=== PATIENT | female | born 2000 | race African-American/Black ===

== ENCOUNTER 2025-06-04 20:54 | Emergency (ER) | payer MEDICAID ==
[~2025-06-04] VITALS: Ht 152.4 cm; Wt 51.4 kg
[2025-06-05 00:58] LABS: PLATELET COUNT (AUTO) 343 K/uL (150-450); RED BLOOD CELL COUNT(AUTO) 5.00 MIL/uL (4.00-5.20); RED CELL DISTRIBUTION WIDTH 17.4 % (11.5-14.5); WHITE BLOOD COUNT (AUTO) 5.5 K/uL (4.5-11.0)
[2025-06-05 00:59] VITALS: BP 110/75; PULSE 65; RESP 24; TEMP 98.605328; O2SAT 98
[2025-06-05 01:05] LABS: RBC MORPHOLOGY COMMENT ABNORMAL RBC MORPH
[2025-06-05 01:08] LABS: CALCIUM, TOTAL 9.6 mg/dL (8.8-10.5); CREATININE 0.82 mg/dL (0.60-1.30); GLOMERULAR FILTR. RATE CALC > 60 mL/min (>60); GLUCOSE,RANDOM 87 mg/dL (70-110); SODIUM SERUM 139 mmol/L (136-145); UREA NITROGEN, BLOOD 14 mg/dL (7-18)
[2025-06-05 01:26] LABS: APPEARANCE,URINE HAZY (CLEAR); GLUCOSE, URINE (UA) NEGATIVE (NEGATIVE); HCG,QUAL URINE NEGATIVE (NEGATIVE); LEUKOCYTE ESTERASE ,URINE MODERATE (NEGATIVE); NITRATE,URINE NEGATIVE (NEGATIVE); OCCULT BLOOD,URINE NEGATIVE (NEGATIVE); PH,URINE DRUG SCREEN 6.0 (5.0-8.0); SPECIFIC GRAVITIY, URINE 1.022 (1.003-1.030)
[2025-06-05] MEDS: SODIUM CHLORIDE 0.9% 1,000 ML IV ONE (01:30)
[2025-06-05 01:31] LABS: ALCOHOL, URINE DRUG SCREEN NEGATIVE (NEGATIVE); AMPHET/METH SCREEN,URINE POSITIVE (NEGATIVE); BARBITURATE SCREEN, URINE NEGATIVE (NEGATIVE); CANNABINOID SCREEN,URINE POSITIVE (NEGATIVE); COCAINE SCREEN,URINE NEGATIVE (NEGATIVE); METHADONE SCREEN, URINE NEGATIVE (NEGATIVE)
[2025-06-05 01:35] LABS: SQUAMOUS EPITHELIAL CELL,UR Rare /LPF (None Seen)
[2025-06-05 02:00] LABS: TROPONIN I-HIGH SENSITIVITY 12 ng/L (<51)
[2025-06-05] MEDS ORDERED: CEPH-558 PO (02:17)
== END 2025-06-05 02:45 | disposition home or self-care (01) ==
LOC: EMS 20:54
DX: N39.0 Urinary tract infection, site not specified (principal); F41.9 Anxiety disorder, unspecified; F15.90 Other stimulant use, unspecified, uncomplicated; I44.1 Atrioventricular block, second degree; F12.90 Cannabis use, unspecified, uncomplicated; R00.0 Tachycardia, unspecified
CPT/HCPCS: 99284; 80048; 81001; 83735; 84484; 84703; 85025; 36415; 80307; 96360; 93005; G0480; J7030